=== PATIENT | female | born 1955 | race Caucasian/White ===

== ENCOUNTER 2022-07-21 08:54 | Outpatient (CLI) | payer BC, SELFPAY ==
--- NOTE | 2022-07-21 09:15 | CRLHL7_ITS ---
For Patients: As a result of the Century Cures Act, medical imaging exams and procedure reports are released immediately into your electronic medical record. You may view this report before your referring provider. If you have questions, please contact your health care provider. ULTRASOUND-GUIDED BREAST BIOPSY AND POST-BIOPSY DIGITAL MAMMOGRAM FOR BIOPSY MARKER PLACEMENT CLINICAL HISTORY: Suspicious mass LEFT breast. COMPARISON STUDIES: 07/20/2022 TECHNIQUE: Real-time ultrasound with image documentation was used for targeting the breast lesion. Core biopsy specimens were obtained using an automated gun with an 18 gauge biopsy needle. Post-biopsy CC and ML digital mammograms were obtained to document position of the biopsy marker. CONSENT and TIME OUT: The procedure, risks, and alternatives were explained to the patient and a consent was signed. [place] Protocol was followed including pre-procedure verification that relevant information/documentation was available, reviewed and properly matched to the patient; consent accurate and complete; and equipment and supplies available. Time Out was conducted just prior to starting procedure to verify the four required elements: patient identity, correct side/site marked (if applicable), procedure, relevant images/results properly labeled and displayed (if applicable). PROCEDURE: The patient was positioned supine on the ultrasound table. The breast was prepped with ChloraPrep. 8 cc 1 percent lidocaine used for local anesthesia. Core samples were obtained. A sterile metal biopsy clip was placed percutaneously to andres the lesion position within the breast. The specimens were placed in 10% formalin and sent to the pathology department. Pressure was held on the biopsy site until all bleeding subsided. The skin incision was closed with Steri-Strips. An ice pack was positioned over the biopsy site. Post-biopsy instructions were reviewed with the patient, and a written copy was given to her. LATERALITY: LEFT breast LESION: Hypoechoic irregular solid nodule mid depth measuring 1.0 x 1.0 x 0.5 cm at 3 o`clock 12 cm from the nipple. SUSPICION FOR MALIGNANCY: High NUMBER OF SAMPLES: 5 BIOPSY CLIP SHAPE: Coil PROXIMITY OF CLIP TO TARGET: Within the lesion IMPRESSION: Ultrasound-guided breast biopsy. When the pathology report is available, an addendum to this report will be made. ACR not applicable. 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 This is concordant. Appropriate action recommended. Dictated by Mati Coffman MD @ Jul 21 2022 12:07PM Signed by:?Mati Coffman MD @07/21/2022 1:12:13 PM (Electronically Signed)
--- NOTE | 2022-07-21 10:00 | CRLHL7_ITS ---
For Patients: As a result of the Century Cures Act, medical imaging exams and procedure reports are released immediately into your electronic medical record. You may view this report before your referring provider. If you have questions, please contact your health care provider. PLEASE SEE LEFT ULTRASOUND-GUIDED BIOPSY OF SAME DAY FOR COMBINED REPORT. CRL:rcd RD/Dictated by: Mati Coffman MD @ 07/21/2022 12:08:00 PM (Electronically Signed)
== END 2022-07-21 08:55 | disposition home or self-care (01) ==
LOC: US 08:58
PROVIDERS: PCP Family Medicine; Visit Provider Surgery
DX: N63.20 Unspecified lump in the left breast, unspecified quadrant (principal); C50.912 Malignant neoplasm of unspecified site of left female breast; R92.8 Other abnormal and inconclusive findings on diagnostic imaging of breast
CPT/HCPCS: 19083; 77065; 88305; 88360; 88361; A4648; A4649; J2001

== ENCOUNTER 2022-08-09 06:42 | Day surgery (SDC) | payer BC, SELFPAY ==
[2022-08-09 07:00] VITALS: BMI 42.0
[2022-08-09] MEDS: LACTATED RINGERS 1000 ML 1,000 ML 100 ML IV (07:00)
[2022-08-09] MEDS: SODIUM CHLORIDE 0.9 % (FLUSH) 10 ML SYRINGE IVF (07:27)
[2022-08-09 07:39] VITALS: BP 164/64; PULSE 86; RESP 20; TEMP 36.4; O2SAT 97
--- NOTE | 2022-08-09 08:00 | CRLHL7_ITS ---
For Patients: As a result of the Century Cures Act, medical imaging exams and procedure reports are released immediately into your electronic medical record. You may view this report before your referring provider. If you have questions, please contact your health care provider. HISTORY: 67-year-old female. Left breast cancer. TECHNIQUE: Following lidocaine injection, 1.02 millicuries of [id number] sulfur colloid was injected in the left breast for sentinel lymph node localization. Images were not obtained. Dictated by Aiden Martell MD @ 08/09/2022 10:10:21 AM (Electronically Signed)
--- NOTE | 2022-08-09 08:15 | CRLHL7_ITS ---
For Patients: As a result of the Cures Act, medical imaging exams and procedure reports are released immediately into your electronic medical record. You may view this report before your referring provider. If you have questions, please contact your health care provider. BREAST WIRE LOCALIZATION USING ULTRASOUND GUIDANCE CLINICAL HISTORY: LEFT breast cancer. LATERALITY: LEFT. LESION: 1.0 x 1.0 x 0.5 cm biopsy-proven cancer 3 o`clock LEFT breast 12 cm from the nipple. LOCALIZATION WIRE: [place] hookwire. TECHNIQUE: The localization wire was placed using real-time ultrasound guidance with image documentation. Cranial-caudal and medial-lateral digital mammograms were obtained after localization wire placement. CONSENT and TIME OUT: The procedure, risks, and alternatives were explained to the patient and a consent was signed. [place] Protocol was followed including pre-procedure verification that relevant information/documentation was available, reviewed and properly matched to the patient; consent accurate and complete; and equipment and supplies available. Time Out was conducted just prior to starting procedure to verify the four required elements: patient identity, correct side/site marked (if applicable), procedure, relevant images/results properly labeled and displayed (if applicable). PROCEDURE: The skin was prepped with ChloraPrep and 8 cc of 1% lidocaine was injected for local anesthesia. The localization wire was placed within or near the targeted breast lesion using ultrasound guidance. The patient tolerated the procedure well. PROXIMITY OF WIRE TO LESION: Wire is located within the lesion immediately adjacent to the clip. IMPRESSION: Successful breast wire localization. ACR not applicable Dictated by Mati Coffman MD @ 08/09/2022 9:59:39 AM jj/Dictated by: Mati Coffman MD @ 08/09/2022 9:59:00 AM (Electronically Signed)
--- NOTE | 2022-08-09 08:49 | SUR.PREOP ---
NUCLEAR MED HERE THEN TO XRAY VIA W/C FOR ULTRASOUND
--- NOTE | 2022-08-09 09:00 | CRLHL7_ITS ---
For Patients: As a result of the Cures Act, medical imaging exams and procedure reports are released immediately into your electronic medical record. You may view this report before your referring provider. If you have questions, please contact your health care provider. PLEASE SEE ULTRASOUND-GUIDED WIRE LOCALIZATION PERFORMED SAME DAY CRL:bailey avalos/Dictated by: Mati Coffman MD @ 08/09/2022 9:59:00 AM (Electronically Signed)
[2022-08-09] MEDS: CEFAZOLIN 2 GM INJ IVP (09:44)
[2022-08-09] MEDS: ISOSULFAN BLUE 5 ML VIAL INJECTION (10:00)
[2022-08-09] MEDS: BUPIVACAINE 0.25% 30 ML INJECTION (10:01)
--- NOTE | 2022-08-09 10:35 | CRLHL7_ITS ---
For Patients: As a result of the Cures Act, medical imaging exams and procedure reports are released immediately into your electronic medical record. You may view this report before your referring provider. If you have questions, please contact your health care provider. LEFT BREAST SPECIMEN RADIOGRAPH CLINICAL HISTORY: LEFT breast cancer. COMPARISON: 07/20/2022. FINDINGS: Specimen films demonstrate the presence of the breast malignancy along with the biopsy clip and localization wire. IMPRESSION: Specimen contains the clip, wire and mass. ACR not applicable Dictated by Mati Coffman MD @ 08/09/2022 11:43:30 AM jj/Dictated by: Mati Coffman MD @ 08/09/2022 11:43:00 AM (Electronically Signed)
[2022-08-09 11:45] VITALS: BP 137/61; PULSE 85; RESP 16; TEMP 36.7; O2SAT 95
--- NOTE | 2022-08-09 11:46 | W.ANESCHARGE ---
Anesthesia Charges Start Date/Time Anesthesia Start Date: 08/09/22 Anesthesia Start Time: 09:34 Stop Date/Time Anesthesia Stop Date: 08/09/22 Anesthesia Stop Time: 11:43 Summary Emergency: No
--- NOTE | 2022-08-09 11:52 | W.ANESCHARGE ---
Anesthesia Charges Start Date/Time Anesthesia Start Date: 08/09/22 Anesthesia Start Time: 09:34 Stop Date/Time Anesthesia Stop Date: 08/09/22 Anesthesia Stop Time: 11:43 Summary Emergency: No
[2022-08-09] MEDS: HYDROCODONE-ACETAMIN 5-325 MG 1 TAB PO ×2 (11:53→12:38)
--- NOTE | 2022-08-09 11:56 | PM.GSPRC ---
Operative Note Date of procedure: 08/09/22 Type of Procedure: 1. Wire localized left lumpectomy. 2. Left sentinel lymph node biopsy. Procedure Description: After discussing the risks and benefits of the procedure, the patient signed informed consent.? The operative site was marked and the patient was brought to the operating room and placed on the operating table in supine position.? Care was taken to pad the patient's pressure points.?? The patient was then sedated by anesthesia.??Lymphazurin was personally injected by me near the left nipple for sentinel lymph node identification. The operative site was then prepped and draped in the usual sterile fashion.? A time-out was then performed. Pre-operative mammographic films taken after wire localization were reviewed. The mixture of Lidocaine and Marcaine was used as local anesthetic and was injected at the site of the incision. The lumpectomy was performed by making a horizontal incision in the left lateral breast near the entrance of the wire.?The breast tissue around the wire was then excised in a cylinder like fashion following the course of the wire using cautery.? This was done with frequent palpation of the wire.? The specimen was then excised making sure that the wire was still in the specimen. Margins of the specimen were inked and the specimen was then sent to mammography first to confirm presence of the wire and the clip and to pathology afterwards for gross margins. A Sameer counter was brought onto the field in the left axilla to identify the best area for the sentinel node biopsy. Local anesthetic was injected in the surgical site. An oblique skin incision was then made over that area. Subcutaneous tissues were dissected with electrocautery. Overall the [place] signal was weak, however, a lymph node was identified and appeared to have radioactive signal. This was excised with cautery. This lymph node was not green but had a signal of 92. This was sent to pathology as the sentinel node #1. Axillary tarun tissue was examined again with the Sameer counter and and no additional significant signal was identified. Hemostasis was achieved with cautery. This incision was then closed in layers with 3-0 Vicryl interrupted stitches to re-approximate deltopectoral fascia and subcutaneous layer and 4-0 Monocryl subcuticular stitch to close skin. Pathologist reviewed the specimen and the tumor was identified and was abutting the inferior margin. All other margins were negative. The new inferior margin was then excised with cautery. This was inked for orientation and sent to pathology for permanent section. Surgical field was examined for bleeding and any bleeding was controlled with electrocautery. The incisions cavity was then irrigated with saline. Breast tissue was mobilized with cautery for tension free closure and re-approximated with interrupted 2-0 Vicryl stitches. Interrupted subdermal stitches were placed with 3-0 Vicryl as well and skin was closed with 4-0 Monocryl subcuticular stitch. Steristrips and sterile dressings were applied over both incisions. Patient's chest was then wrapped in an Manuel wrap. At the end of the operation, all sponge, instrument, and needle counts were correct. Patient tolerated the procedure well and was transferred to same-day surgery in stable condition. Findings: One sentinel lymph node was identified. The tumor was identified and was close to the inferior margin. A new inferior margin was excised. Anesthesia: MAC and local Surgeon: Sabino Jimenez MD Estimated blood loss (mL): 5 Condition: stable Disposition: same day
[2022-08-09 12:00] VITALS: BP 152/72; PULSE 91; RESP 16; O2SAT 93
[2022-08-09 12:15] VITALS: BP 170/88; PULSE 96; RESP 16; O2SAT 93
[2022-08-09 12:35] VITALS: BP 144/65; PULSE 83; RESP 16; O2SAT 93
[2022-08-09 13:20] VITALS: BP 142/64; PULSE 82; RESP 16; TEMP 36.8; O2SAT 94
== END 2022-08-09 13:22 | disposition home or self-care (01) ==
PROVIDERS: PCP Surgery; Visit Provider Surgery
PROC: (CPT 19301; principal; 2022-08-09 08:45)
DX: C50.912 Malignant neoplasm of unspecified site of left female breast (principal); Z17.0 Estrogen receptor positive status [ER+]
CPT/HCPCS: 19301; 38500; 00400; 19285; 38792; 77065; 82962; 88307; A9270; A9541; C1769; J0690; J1885; J2250; J2405; J2704; J3010; J3490; J7120

== ENCOUNTER 2023-02-02 10:30 | Outpatient (RCR) | payer BC, SELFPAY ==
--- NOTE | 2022-10-11 11:44 | ONC.NURNOTE ---
Accompanied patient to her oncology visit. Reviewed side effects of Anastrozole. Printed information given to patient. Patient encouraged to call [facility] with any questions or concerns.
--- NOTE | 2022-11-14 14:12 | ONC.NURNOTE ---
Called pt to f/u 1 mo of taking Anastrazole. She reports she is feeling well and has not noticed many side effects. She does note her sleep is more interrupted but is not sure this is related. She describes it as mild and manageable. In the past when she has taken OTC sleep aids, they carry into the next day making her more sleepy; she does not feel intervention is warranted and will contact us if any issues before f/u appt ~ 01/2023.
== END 2023-02-19 23:59 | disposition home or self-care (01) ==
LOC: CCIC 10:30
PROVIDERS: PCP Surgery; Visit Provider Internal Medicine Hematology & Oncology
DX: C50.912 Malignant neoplasm of unspecified site of left female breast (principal); Z17.0 Estrogen receptor positive status [ER+]; Z79.811 Long term (current) use of aromatase inhibitors; Z91.018 Allergy to other foods; Z85.038 Personal history of other malignant neoplasm of large intestine
CPT/HCPCS: 99202; 99205; 99212; 99214

== ENCOUNTER 2023-07-19 14:30 | Outpatient (RCR) | payer BC, SELFPAY ==
--- NOTE | 2023-06-16 15:06 | ONC.NURNOTE ---
Called pt to check in on brain fog symptoms with Arimidex noted around last visit. She notes she is overall feeling better. She notes she deferred coming in to Dr. Brown in March (6 wk f/u) d/t cost of each visit, and she felt she was managing adequately with the current plan of Arimidex QOD. Pt scheduled to f/u with Dr. Brown 07/19.
--- NOTE | 2023-08-25 12:51 | ONC.NURNOTE ---
Pt spoke with Rosita SPEARS that she is tolerating Aromasin well. She does not feel she needs a f/u appt to review side effects so soon and would like to be seen in Nov. Moved appt from 09/04 1p to 11/27/23 1p and Lm for pt with date/time. Pt requesting 90 day supply of Aromasin; nsg to request from Dr. Brown.
== END 2023-08-29 23:59 | disposition home or self-care (01) ==
LOC: CCIC 14:30
PROVIDERS: PCP Surgery; Visit Provider Internal Medicine Hematology & Oncology
DX: C50.912 Malignant neoplasm of unspecified site of left female breast (principal); Z17.0 Estrogen receptor positive status [ER+]; Z79.811 Long term (current) use of aromatase inhibitors; Z85.038 Personal history of other malignant neoplasm of large intestine
CPT/HCPCS: 99212; 99213; 99214

== ENCOUNTER 2023-08-14 10:16 | Outpatient (CLI) | payer BC, SELFPAY ==
--- NOTE | 2023-08-14 10:45 | CRLHL7_ITS ---
For Patients: As a result of the Cures Act, medical imaging exams and procedure reports are released immediately into your electronic medical record. You may view this report before your referring provider. If you have questions, please contact your health care provider. DIGITAL DIAGNOSTIC BILATERAL MAMMOGRAM USING TOMOSYNTHESIS AND COMPUTER-AIDED DETECTION LEFT BREAST ULTRASOUND CLINICAL HISTORY: LEFT breast lump. COMPARISON: 07/21/2022, 07/20/2022, 07/07/2022. TECHNIQUE: Digital BILATERAL mammogram in two projections. Tomosynthesis and CAD utilized. Real-time ultrasound imaging of LEFT breast with imaging documentation. BREAST COMPOSITION: There are areas of scattered fibroglandular density. FINDINGS: 3D CC/MLO BILATERAL mammogram images submitted. Postop changes LEFT breast. No suspicious masses or architectural distortion. No adenopathy or suspicious calcifications. Targeted LEFT breast ultrasound performed 3 o`clock 10 cm from the nipple. In this location there is nonvascular heterogeneous tissue with echotexture isoechoic with adjacent fat. This measures 1.5 x 1.2 x 1.6 cm. IMPRESSION: Benign focal fat necrosis corresponding to the area of concern. No evidence of malignancy. No abscess or seroma. RECOMMENDATIONS: Annual BILATERAL screening mammography. Results and recommendations discussed with the patient. BI-RADS Category 2: Benign A lay language report of this examination will be provided to the patient. Dictated by Mati Coffman MD @ 08/14/2023 11:42:54 AM /Dictated by: Mati Coffman MD @ 08/14/2023 11:42:00 AM (Electronically Signed)
--- NOTE | 2023-08-14 11:15 | CRLHL7_ITS ---
For Patients: As a result of the Cures Act, medical imaging exams and procedure reports are released immediately into your electronic medical record. You may view this report before your referring provider. If you have questions, please contact your health care provider. PLEASE SEE DIGITAL DIAGNOSTIC BILATERAL MAMMOGRAM PERFORMED SAME DAY CRL:bailey avalos/Dictated by: Mati Coffman MD @ 08/14/2023 11:42:00 AM (Electronically Signed)
== END 2023-08-14 10:17 | disposition home or self-care (01) ==
PROVIDERS: PCP Surgery; Visit Provider Internal Medicine Hematology & Oncology
DX: N63.20 Unspecified lump in the left breast, unspecified quadrant (principal)
CPT/HCPCS: 76642; 77066; G0279

== ENCOUNTER 2023-12-18 13:24 | Outpatient (RCR) | payer BC, SELFPAY | END 2024-06-15 23:59 | disposition home or self-care (01) | LOC: CCIC 13:24 | PROVIDERS: PCP Surgery; Visit Provider Internal Medicine Hematology & Oncology | DX: C50.912 Malignant neoplasm of unspecified site of left female breast (principal); Z17.0 Estrogen receptor positive status [ER+]; Z79.811 Long term (current) use of aromatase inhibitors; Z91.018 Allergy to other foods; Z85.038 Personal history of other malignant neoplasm of large intestine | CPT/HCPCS: 99214; 99215; G0463 ==

== ENCOUNTER 2024-08-26 14:16 | Outpatient (RCR) | payer BC, SELFPAY ==
--- NOTE | 2024-07-31 11:58 | ONC.NURNOTE ---
Patient called to request scheduling her DEXA scan at [facility]. Orders faxed to care coordinators at [facility], . Patient requested we wait to schedule follow up until she knows the date of her DEXA and mammogram as well as an upcoming hand surgery she needs.
== END 2025-02-22 23:59 | disposition home or self-care (01) ==
LOC: CCIC 14:16
PROVIDERS: PCP Surgery; Visit Provider Physician Assistant
DX: C50.912 Malignant neoplasm of unspecified site of left female breast (principal); Z17.0 Estrogen receptor positive status [ER+]; Z79.811 Long term (current) use of aromatase inhibitors; Z85.038 Personal history of other malignant neoplasm of large intestine
CPT/HCPCS: 99214; G0463

== ENCOUNTER 2025-08-13 10:30 | Outpatient (RCR) | payer BC, SELFPAY | END 2025-08-13 15:08 | disposition home or self-care (01) | PROVIDERS: PCP Surgery; Visit Provider Orthopaedic Surgery | DX: Z48.89 Encounter for other specified surgical aftercare (principal); Z51.89 Encounter for other specified aftercare | CPT/HCPCS: 97035; 97110; 97140; 97165; 97530; X5282 ==